=== PATIENT | female | born 1960 | race Caucasian/White ===

== ENCOUNTER → 2017-07-14 | Outpatient (CLI) | payer OTHER | LOC: FIMAGING 08:12 | PROVIDERS: ATTEND Obstetrics & Gynecology Gynecology | DX: Z12.31 Encounter for screening mammogram for malignant neoplasm of breast (principal) ==

== ENCOUNTER 2017-12-16 16:12 | Emergency (ER) | payer OTHER ==
--- NOTE | 2017-12-16 16:29 | EDPHY ---
H & P Time Seen by Provider: 12/16/17 16:20 HPI/ROS: Chief complaint. Paresthesias HPI. Patient is a 57-year-old female with altered sensation to left face and left hand. Symptoms occurred at 2:00 p.m. Today. She tells me that for the last 1-2 weeks she has had a sense of saliva or drooling on the left side of her mouth but it is not wet. Today she was driving and had some left face tingling and then tingling to the dorsum of her hand. No weakness. No involvement of her left leg. She has chronic neck problems and is treated by a chiropractor regularly. She had chiropractic neck adjustment 4 days ago. She has no chest discomfort or shortness of breath or abdominal pain or change in her vision. ROS Constitutional. no fever/chills, no weakness Eyes. no problems with vision ENT. no sore throat, no nasal drainage Cardiovascular. no chest pain Respiratory. no shortness of breath, no cough Abdominal. no abdominal pain, no nausea/vomiting, no diarrhea . no problems urinating MS. no calf pain/swelling, no neck/back pain, no joint pain Skin. no rash Lymph. no swollen glands Neuro. Tingling left cheek and left hand Past Medical/Surgical History: Hypothyroid Social History: , nonsmoker, no alcohol Smoking Status: Never smoked Physical Exam: General Appearance: Alert pleasant well-developed female mild distress vital signs are stable Eyes: Pupils equal and round no pallor or injection. ENT, Mouth: Mucous membranes are moist. Respiratory: There are no retractions, lungs are clear to auscultation. Cardiovascular: Regular rate and rhythm. Gastrointestinal: Abdomen is soft and nontender, no masses, bowel sounds normal. Neurological: Awake and alert, sensory and motor exams grossly normal. Speech is normal. Cranial nerves are normal. Subjective sensation of different sensation to the left cheek. Also subjective sensation of altered sensation to the dorsum of the left hand and wrist. There is no pronator drift. Finger-to- nose [id number] are intact bilaterally Skin: Warm and dry, no rashes. Musculoskeletal: Neck is supple nontender. Extremities symmetrical, full range of motion. Psychiatric: Patient is oriented X 3, there is no agitation. Constitutional: Initial Vital Signs Temperature (C) 36.4 C 12/16/17 16:15 Heart Rate 73 12/16/17 16:15 Respiratory Rate 17 12/16/17 16:15 Blood Pressure 110/59 L 12/16/17 16:15 O2 Sat (%) 97 12/16/17 16:15 O2 Delivery Mode Room Air Allergies/Adverse Reactions: Sulfa (Sulfonamide Antibiotics) Allergy (Verified 12/16/17 16:14) Home Medications: Medication Instructions Recorded Synthroid 12/16/17 Medical Decision Making - Diagnostics EKG Interpretation: EKG interpreted by me shows normal sinus rhythm with normal interval. There is left axis deviation and possible left anterior fascicular block. QRS is otherwise normal. There is no significant ST elevation or depression. There is no arrhythmia. The rate is 62 Imaging Results: Imaging Impressions Brain MRI 12/16/17 16:53 Impression: Normal MRI examination of the brain.. Results called to Dr. Jose Ramon Merlos at 6:20 PM. Head CTA 12/16/17 16:53 Impression: Normal CT angiography of the [place] of [place]. Results called to emergency room at 6:40 PM. Neck CTA 12/16/17 16:53 Impression: Normal CT angiography of the carotid and vertebrobasilar systems. No vertebral artery dissection identified.. Note: All stenoses are calculated using NASCET Criteria. Results called to the emergency room at 6:40 PM. MRI without contrast reviewed by me and discussed with Dr. Calle is normal CTA of the brain is normal CTA of the neck is normal Procedures: IV normal saline, monitor ED Course/Re-evaluation: I consulted and discussed the case with Dr. Brown for Neurology. He recommends MRI head without contrast as well as CTA of head and neck for vascular occlusion or vascular injury from chiropractic manipulation Re-evaluation 6:45 p.m.. Patient and I discussed imaging and lab results. We discussed treatment plan including criteria for return importance of follow-up and further evaluation. She expresses understanding Differential Diagnosis: I considered TIA, CVA, vascular injury from chiropractic manipulation. Her tingling in her hand may be secondary to her chronic neck pain. There is no evidence for Van's palsy or facial weakness. - Data Points Laboratory Results: Laboratory Results 12/16/17 16:42 12/16/17 16:42 12/16/17 12/16/17 12/16/17 16:42 16:42 16:42 WBC 5.33 10^3/uL 10^3/uL (3.80-9.50) RBC 4.25 10^6/uL 10^6/uL (4.18-5.33) Hgb 13.4 g/dL g/dL (12.6-16.3) Hct 38.7 % % (38.0-47.0) MCV 91.1 fL fL (81.5-99.8) MCH 31.5 pg pg (27.9-34.1) MCHC 34.6 g/dL g/dL (32.4-36.7) RDW 12.6 % % (11.5-15.2) Plt Count 186 10^3/uL 10^3/uL (150-400) MPV 9.4 fL fL (8.7-11.7) Neut % (Auto) 77.4 % H % (39.3-74.2) Lymph % (Auto) 13.7 % L % (15.0-45.0) [place] % (Auto) 6.2 % % (4.5-13.0) Eos % (Auto) 1.7 % % (0.6-7.6) Baso % (Auto) 0.8 % % (0.3-1.7) Nucleat RBC Rel Count 0.0 % % (0.0-0.2) Absolute Neuts (auto) 4.13 10^3/uL 10^3/uL (1.70-6.50) Absolute Lymphs (auto) 0.73 10^3/uL L 10^3/uL (1.00-3.00) Absolute Monos (auto) 0.33 10^3/uL 10^3/uL (0.30-0.80) Absolute Eos (auto) 0.09 10^3/uL 10^3/uL (0.03-0.40) Absolute Basos (auto) 0.04 10^3/uL 10^3/uL (0.02-0.10) Absolute Nucleated RBC 0.00 10^3/uL 10^3/uL (0-0.01) Immature Gran % 0.2 % % (0.0-1.1) Immature Gran # 0.01 10^3/uL 10^3/uL (0.00-0.10) PT 12.6 SEC SEC (12.0-15.0) INR 0.92 (0.83-1.16) Sodium 143 mEq/L mEq/L (135-145) Potassium 4.0 mEq/L mEq/L (3.3-5.0) Chloride 109 mEq/L mEq/L (97-110) Carbon Dioxide 26 mEq/l mEq/l (22-31) Anion Gap 8 mEq/L mEq/L (8-16) BUN 17 mg/dL mg/dL (7-23) Creatinine 0.8 mg/dL mg/dL (0.6-1.0) Estimated GFR > 60 Glucose 87 mg/dL mg/dL (70-100) Calcium 9.2 mg/dL mg/dL (8.5-10.4) Medications Given: Discontinued Medications Sodium Chloride (Ns) 1,000 mls @ 0 mls/hr IV ONCE ONE; Wide Open PRN Reason: Protocol Stop: 12/16/17 16:41 Last Admin: 12/16/17 16:55 Dose: 1,000 mls Departure - Departure Disposition: Home, Routine, Self-Care Clinical Impression: Paresthesia Condition: Good Instructions: Paresthesia (ED) Additional Instructions: Activity as tolerated. Return for worsening symptoms. Consider aspirin 81 mg daily. Follow-up with for further evaluation Referrals: Lorena Blackwell MD [Primary Care Provider] - As per Instructions Pramod Kendall MD [Medical Doctor] - 2-3 days, call for appt.
[2017-12-16] MEDS ORDERED: NS 1,000 ML IV ONE (16:40)
--- NOTE | 2017-12-16 16:50 | CPEKG ---
Heart Rate: 62 RR Interval: 968 P-R Interval: 168 QRSD Interval: 78 QT Interval: 388 QTC Interval: 394 P [place]: 63 QRS [place]: -47 T Wave [place]: 59 EKG Severity - ABNORMAL ECG - EKG Impression: SINUS RHYTHM EKG Impression: LAD, CONSIDER LEFT ANTERIOR FASCICULAR BLOCK Electronically Signed By: Jose Ramon Merlos 16-Dec-2017 19:43:15
[2017-12-16] MEDS ORDERED: GADOBUTROL 10 ML VIAL IVP ONE (17:20)
[2017-12-16 17:36] LABS: PLATELET COUNT 186 10^3/uL (150-400)
[2017-12-16 17:37] LABS: INR 0.92 (0.83-1.16); PROTIME(PATIENT) 12.6 SEC (12.0-15.0)
[2017-12-16 19:13] VITALS: BP 117/73
== END 2017-12-16 19:13 | disposition home or self-care (01) ==
DX: R20.2 Paresthesia of skin (principal); E86.9 Volume depletion, unspecified
CPT/HCPCS: A9585